=== PATIENT | male | born 1975 | race Caucasian/White ===

== ENCOUNTER 2025-03-17 20:54 | Outpatient (CLI) | payer OTHER, SELFPAY | END 2025-03-17 20:55 | disposition home or self-care (01) | LOC: SLEEP 21:00 | PROVIDERS: PCP Internal Medicine; Visit Provider Internal Medicine | DX: G47.33 Obstructive sleep apnea (adult) (pediatric) (principal); G47.10 Hypersomnia, unspecified | CPT/HCPCS: 95810 ==